=== PATIENT | female | born 1960 | race Caucasian/White ===

== ENCOUNTER → 2016-12-18 | Outpatient (CLI) | payer OTHER ==
[~2016-12-18] MED LIST: ALPRAZOLAM0.5 MG PO; ASPIR-LOW81 MG PO; CELEBREX200 MG PO; HYDROCHLOROTHIA25 MG PO; IMDUR ER TAB 3030 MG PO; NITROSTAT0.4 MG SL; TOPROL XL50 MG PO; WELLBUTRIN SR150 MG PO; ZANTAC150 MG PO
== END ==
LOC: US 12-13 13:30
DX: E04.9 Nontoxic goiter, unspecified (principal); E04.2 Nontoxic multinodular goiter
CPT/HCPCS: 76536

== ENCOUNTER → 2021-07-13 | Outpatient (CLI) | payer OTHER ==
[~2021-07-13] MED LIST changes: +NORCO 5-325 TA1 EACH PO
== END ==
LOC: KOH-I 08:25
DX: J06.9 Acute upper respiratory infection, unspecified (principal)
CPT/HCPCS: 71046

== ENCOUNTER → 2021-08-31 | Outpatient (CLI) | payer OTHER | LOC: KOH-I 08:56 | DX: M54.6 Pain in thoracic spine (principal); M47.814 Spondylosis without myelopathy or radiculopathy, thoracic region | CPT/HCPCS: 72070 ==

== ENCOUNTER → 2021-12-12 | Outpatient (CLI) | payer OTHER | LOC: KOH-I 10:00 | DX: D16.9 Benign neoplasm of bone and articular cartilage, unspecified (principal); R93.0 Abnormal findings on diagnostic imaging of skull and head, not elsewhere classified | CPT/HCPCS: 70480 ==